=== PATIENT | male | born 1980 | race Caucasian/White ===

== ENCOUNTER 2018-07-31 22:13 | Emergency (ER) | payer MEDICAID ==
[~2018-07-31] VITALS: Ht 172.7 cm; Wt 72.7 kg
[2018-07-31 22:16] VITALS: BP 159/91; Ht 172.7 cm; Wt 72.7 kg
== END 2018-07-31 23:42 | disposition left against medical advice (07) ==
LOC: D.ER 22:13
DX: S51.812A Laceration without foreign body of left forearm, initial encounter (principal); W26.0XXA Contact with knife, initial encounter; Y93.89 Activity, other specified; Y92.019 Unspecified place in single-family (private) house as the place of occurrence of the external cause